=== PATIENT | male | born 1985 | race Caucasian/White ===

== ENCOUNTER 2020-05-03 18:23 | Emergency (ER) | payer OTHER ==
[~2020-05-03] VITALS: Ht 172.7 cm; Wt 94.8 kg
[~2020-05-03 18:23] MED LIST: AMOXICILLIN875 MG PO; NORCO 5-325 TA1 EAC1 PO; PENICILLIN VK500 MG PO; PREDNISONE50 MG PO; PROAIR HFA8.5 GM INH
[2020-05-03 18:29] VITALS: BP 129/92
== END 2020-05-03 19:22 | disposition home or self-care (01) ==
LOC: M.ERS 18:23
DX: S51.012A Laceration without foreign body of left elbow, initial encounter (principal); Z88.0 Allergy status to penicillin; W26.8XXA Contact with other sharp object(s), not elsewhere classified, initial encounter; Y93.89 Activity, other specified; Y92.89 Other specified places as the place of occurrence of the external cause; Y99.8 Other external cause status

== ENCOUNTER 2020-05-05 18:25 | Inpatient (IN) | payer OTHER ==
[~2020-05-05] VITALS: Ht 172.7 cm; Wt 95.3 kg
[2020-05-05 18:53] VITALS: BP 146/89
[2020-05-05 19:32] LABS: HEMATOCRIT 47.8 % (42.0-52.0); HEMOGLOBIN 16.3 gm/dL (14.0-18.0); MCH 29.9 pg (26.0-34.0); MCHC 34.2 g/dL (28.0-37.0); MCV 87.5 fL (80.0-100.0); MPV 7.8 fl. (7.2-11.1); NUCLEATED RBCS 0 /100WBC; PLATELET COUNT* 263 thou/uL (150-400); RBC 5.47 mil/uL (4.50-6.00); RDW-CV 12.9 % (10.5-14.5)
[2020-05-05 19:39] LABS: CALCIUM 8.5 mg/dL (8.5-10.1); POTASSIUM 3.7 mmol/L (3.5-5.1)
[2020-05-05 19:44] LABS: ALBUMIN 3.9 g/dL (3.4-5.0); TOTAL BILIRUBIN 0.7 mg/dL (<0.1-1.0); TOTAL PROTEIN 7.7 g/dL (6.4-8.2)
[2020-05-05 20:15] LABS: ABSOLUTE MONOCYTES 1.3 thou/uL (0.0-1.2); ABSOLUTE NEUTROPHILS 16.7 thou/uL (1.6-8.1); PLATELET ESTIMATE ADEQUATE
[2020-05-05 21:38] VITALS: BP 135/75
[2020-05-05 22:10] VITALS: BP 123/75
[2020-05-06 04:17] LABS: HEMATOCRIT 39.1 % (42.0-52.0); MCH 30.4 pg (26.0-34.0); MCHC 34.9 g/dL (28.0-37.0); MCV 87.2 fL (80.0-100.0); MPV 8.5 fl. (7.2-11.1); RBC 4.49 mil/uL (4.50-6.00); RDW-CV 13.2 % (10.5-14.5); WBC 16.6 thou/uL (4.0-11.0)
[2020-05-06 04:26] LABS: CALCIUM 7.8 mg/dL (8.5-10.1); CREATININE 1.1 mg/dL (0.6-1.3); POTASSIUM 3.8 mmol/L (3.5-5.1)
[2020-05-06 04:34] LABS: HEMOGLOBIN 13.6 gm/dL (14.0-18.0)
[2020-05-06 08:00] VITALS: BP 139/87
--- NOTE | 2020-05-06 10:30 | NUR ---
DISCUSSED WITH . SHE FEELS PT.WILL BE HERE THROUGH THE WEEKEND. HAS INFECTED LACERATION L ARM. HE IS INDEPENDENT. WORKS OUTSIDE THE HOME. NO USE OF DME OR HH. LIVES WITH AND CHILDREN. NO DISCHARGE NEEDS IDENTIFIED.
--- NOTE | 2020-05-06 13:14 | CON ---
[address] [address] CONSULTATION Name: CECY GOMEZ Room: [address] IN M.R.#: [id number] Admission: 05/05/20 Attend Phys: Ramakrishna Douglas Discharge: Date of : 87 Report #: [id number] THIS REPORT FOR: //name// cc: CHIQUITA Emery family physician/PCP CHIQUITA Emery family physician/PCP ~ THIS REPORT FOR: //name// CC: CHIQUITA physician/PCP Ramakrishna Clayton DATE OF SERVICE: 05/06/2020 INFECTIOUS DISEASE CONSULTATION ATTENDING PHYSICIAN: Ramakrishna Clayton MD REASON FOR EVALUATION: Left elbow laceration complicated by skin and soft tissue infection, apparently did involve deep structures. HISTORY OF PRESENT ILLNESS: Chart reviewed, patient examined. This is a 34-year-old without significant medical history who sustained an injury while at work, actually developed a laceration from a piece of sheet metal slashed through his site of the olecranon. It is not clear that it involved the bursa, was evaluated and had 5 interrupted sutures placed, returned noting increasing cardinal signs of inflammation, specifically redness, heat pain and swelling and made it difficult to decrease range of motion about the elbow, did have some low-grade temperature elevation as well, had experienced some anorexia and poor p.o. intake. Some of the sutures were removed. He had a mild amount of discharge, started initially on therapy with clindamycin and vancomycin. It is notable he had apparent anaphylaxis reaction to penicillin type antibiotics. He is generally lucid. Denies any pulmonary or gastrointestinal related complaints. ALLERGIES: PENICILLINS DESCRIBED ABOVE. MEDICATIONS: Currently include enoxaparin, vancomycin, famotidine, p.r.n. analgesics and antiemetics. PAST MEDICAL HISTORY: Anxiety. SOCIAL HISTORY: Nonsmoker. No ethanol, no illicit drug use. FAMILY HISTORY: Noncontributory. REVIEW OF SYSTEMS: Otherwise, unremarkable 10-point review [place] [address] CONSULTATION Name: CECY GOMEZ Room: [address]#: [id number] Admission: 05/05/20 Attend Phys: Ramakrishna Douglas Discharge: Date of : 87 Report #: [id number] PHYSICAL EXAMINATION: GENERAL: He is pleasant, alert and cooperative. He is in [id number]-fuptoehr distress, reasonably well nourished. VITAL SIGNS: Temperature max 99.5, more recently 98.2, pulse 100, respirations 18, blood pressure 139/87. SKIN: Warm, dry. No rashes. HEENT: Normocephalic. Extraocular muscles intact. NECK: Supple. He has got poor dentition certainly given his age. LUNGS: Generally clear to auscultation. HEART: Regular. Borderline tachycardic. I do not appreciate a murmur. ABDOMEN: Soft, nontender, nondistended. EXTREMITIES: Left elbow has a compression dressing on it. Apparently it was just changed for surgery. I discussed with Dr. Flood who describes it is much improved with the course since his initial arrival with decreased redness, almost full range of motion at this point. RECTAL: Deferred. LABORATORY DATA: Blood cultures sterile thus far. Electrolytes: Sodium 142, potassium 3, chloride 108, bicarbonate 25, anion gap of 9, BUN and creatinine 9 and 1.1, glucose of 107. CBC: White count 16.6, H and H 13.6 and 39.1, platelets of 210. COVID testing was negative. Sed rate was 3. CRP was elevated at 163.3. Lactic acid was 0.8. Liver functions on admission were otherwise unremarkable. Albumin of 3.9, total protein 7.7. Estimated GFR of 86. ASSESSMENT: Laceration involving the olecranon site on the left elbow. We will continue vancomycin. There are no cultures done thus far other than the blood cultures. We will see if those prove helpful, although I think the yield is probably fairly low. Clinically, he has improved on antimicrobials and accessing more of the laceration with removing the sutures. Continue to elevate and compress. <ELECTRONICALLY SIGNED> By: Gareth Monae MD 05/06/20 1314 [id number] Monae MD /nt
--- NOTE | 2020-05-06 17:58 | NUR ---
ASSUMED CARE OF PATIENT AT APPROX 1245. ALERT AND ORIENTED X4. NO COMPLAINTS OF PAIN. PATIENT DID HAVE A TEMP OF 100.0, TYLENOL GIVEN AND TEMP REASSESS AT 99.0. FLUIDS AND ANTIBIOTICS INFUSED ORDERED. PATIENT ALSO HAS SOME VOMITING AND GIVEN ZOFRAN. NOOTHER COMPLAINTS THIS SHIFT. PATIENT UP AD ROBERTA IN THE ROOM TO THE BATHROOM. CALL LIGHT PLACED IN REACH. WILL CONTINUE WITH PLAN OF CARE.
[2020-05-06 20:13] VITALS: BP 129/75
[2020-05-07 04:12] LABS: HEMATOCRIT 39.3 % (42.0-52.0); HEMOGLOBIN 13.5 gm/dL (14.0-18.0); MCH 29.9 pg (26.0-34.0); MCHC 34.3 g/dL (28.0-37.0); MCV 87.1 fL (80.0-100.0); RBC 4.51 mil/uL (4.50-6.00); RDW-CV 13.1 % (10.5-14.5); WBC 15.3 thou/uL (4.0-11.0)
[2020-05-07 04:20] LABS: CALCIUM 7.9 mg/dL (8.5-10.1); CREATININE 0.9 mg/dL (0.6-1.3); POTASSIUM 3.9 mmol/L (3.5-5.1)
--- NOTE | 2020-05-07 05:18 | NUR ---
PATIENT ALERT AND ORIENTED. HE DID NOT REPORT ANY WORSENING PAIN OR REQUEST ANY PAIN MEDICATION. HE IS UP AD ROBERTA. SLEPT ALL SHIFT. RECEIVED ALL MEDS AND ABX SCHEDULED. WILL CONTINUE TO MONITOR.
[2020-05-07 15:35] VITALS: BP 124/78
--- NOTE | 2020-05-07 17:54 | NUR ---
PATIENT ALERT AND ORIENTED X 4. VITAL SIGNS STABLE ON ROOM AIR. AFEBRILE. UP INDEPENDENTLY AND AMBULATING IN ROOM. IV PATENT WITH FLUIDS INFUSING. PAIN BEING MANAGED WITH PO MEDICATION. DENIES NAUSEA AT THIS TIME. DRESSING TO LEFT ELBOW CHANGED AND IS CLEAND, DRY, INTACT. HOURLY ROUNDS MAINTAINED THROUGHOUT THE SHIFT. CALL LIGHT WITHIN REACH. NURSING WILL CONTINUE TO MONITOR.
[2020-05-07 20:30] VITALS: BP 142/91
[2020-05-08 04:09] LABS: ABSOLUTE EOSINOPHILS 0.1 thou/uL (0.0-0.7); ABSOLUTE LYMPHOCYTES 1.4 thou/uL (0.8-5.3); ABSOLUTE NEUTROPHILS 9.7 thou/uL (1.6-8.1); BASOPHILS 0.1 %; EOSINOPHILS 0.9 %; HEMATOCRIT 37.1 % (42.0-52.0); LYMPHOCYTES 11.6 %; MCH 30.4 pg (26.0-34.0); MONOCYTES 8.5 %; NUCLEATED RBCS 0 /100WBC; PLATELET COUNT* 227 thou/uL (150-400); POLYS 78.9 %; RBC 4.27 mil/uL (4.50-6.00); RDW-CV 12.9 % (10.5-14.5); WBC 12.3 thou/uL (4.0-11.0)
[2020-05-08 04:24] LABS: ALBUMIN 2.4 g/dL (3.4-5.0); CALCIUM 7.9 mg/dL (8.5-10.1); POTASSIUM 3.7 mmol/L (3.5-5.1); TOTAL BILIRUBIN 0.2 mg/dL (<0.1-1.0); TOTAL PROTEIN 5.2 g/dL (6.4-8.2)
--- NOTE | 2020-05-08 04:56 | NUR ---
PATIENT HAS REMAINED ALERT AND ORIENTED X 4 THROUGHOUT THE SHIFT AND RESTING QUIETLY ON HOURLY ROUNDS. UP INDEPENDENTLY IN THE ROOM. DRESSING TO LEFT ELBOW CLEAN AND DRY. VITAL SIGNS WITH TEMP 99.3. MEDS/IVF'S/ANTIBIOTICS PER ORDER. DENIES PAIN. HOPES TO GO HOME TODAY. CONTINUE TO MONITOR.
[2020-05-08] MEDS ORDERED: TRAMADOL 50 MG50 MG PO (07:39)
[2020-05-08] MEDS ORDERED: DOXYCYCLINE 10100 M2 PO (07:40)
[2020-05-08 08:40] VITALS: BP 140/96
[2020-05-08 11:09] VITALS: BP 140/96
--- NOTE | 2020-05-08 13:16 | NUR ---
PATIENT DISCHARGED FROM UNIT AT 1215. ALERT AND ORIENTED X 4. VITAL SIGNS STABLE ON ROOM AIR. AFEBRILE. IV DISCONTINUED. DENIES PAIN AND NAUSEA AT THIS TIME. MEDICATION INFORMATION, SCRIPTS, AND DISCHARGE INSTRUCTIONS GIVEN TO PATIENT. LEFT WITH ALL BELONGINGS. PATIENT LEFT WITH VIA CAR.
[2020-05-08 13:53] VITALS: BP 140/96
== END 2020-05-08 12:15 | disposition home or self-care (01) | DRG 872 ==
LOC: M.ERS 18:25 → M.TBA-ER 20:17 → M.ORTHSURG 20:17
PROVIDERS: Internal Medicine; Nurse Practitioner Family; Surgery; ADMIT Family Medicine; ATTEND Family Medicine
PROC: 8E0XXY8 Suture Removal from Upper Extremity (ICD-10-PCS; principal; 2020-05-06)
DX: A41.9 Sepsis, unspecified organism (principal); L03.114 Cellulitis of left upper limb; F41.9 Anxiety disorder, unspecified; Z20.828 Contact with and (suspected) exposure to other viral communicable diseases; S51.012A Laceration without foreign body of left elbow, initial encounter; W45.8XXA Other foreign body or object entering through skin, initial encounter; F12.90 Cannabis use, unspecified, uncomplicated; Z79.899 Other long term (current) drug therapy; Z88.0 Allergy status to penicillin; Y93.89 Activity, other specified; Y92.89 Other specified places as the place of occurrence of the external cause; Y99.8 Other external cause status

== ENCOUNTER 2020-12-31 03:09 | Emergency (ER) | payer OTHER ==
[~2020-12-31] VITALS: Ht 172.7 cm; Wt 95.3 kg
[~2020-12-31 03:09] MED LIST changes: +DOXYCYCLINE 10100 M2 PO; +TRAMADOL 50 MG50 MG PO
[2020-12-31] MEDS ORDERED: NORCO5 PO (04:12)
[2020-12-31] MEDS ORDERED: IBUPROFEN 600600 M1 PO (04:12)
[2020-12-31] MEDS ORDERED: CLEOCIN HCL150 M1 PO (04:12)
[2020-12-31 06:20] VITALS: BP 144/79
== END 2020-12-31 06:20 | disposition home or self-care (01) ==
LOC: M.ERS 03:09
DX: A69.1 Other Vincent's infections (principal); L03.211 Cellulitis of face; R59.1 Generalized enlarged lymph nodes; Z88.0 Allergy status to penicillin

== ENCOUNTER 2021-06-19 11:27 | Emergency (ER) | payer OTHER ==
[~2021-06-19] VITALS: Ht 172.7 cm; Wt 97.5 kg
[~2021-06-19 11:27] MED LIST changes: +CLEOCIN HCL150 M1 PO; +IBUPROFEN 600600 M1 PO; +NORCO5 PO
[2021-06-19] MEDS ORDERED: CENTANY30 GM TOP (13:37)
[2021-06-19] MEDS ORDERED: IBUPROFEN 800800 M1 PO (13:37)
[2021-06-19] MEDS ORDERED: FLEXERIL PO (13:37)
[2021-06-19 13:57] VITALS: BP 134/62
== END 2021-06-19 13:59 | disposition home or self-care (01) ==
LOC: M.ERS 11:27
DX: S90.32XA Contusion of left foot, initial encounter (principal); S50.01XA Contusion of right elbow, initial encounter; S80.811A Abrasion, right lower leg, initial encounter; M25.561 Pain in right knee; F41.9 Anxiety disorder, unspecified; Z88.0 Allergy status to penicillin; Y02.0XXA Assault by pushing or placing victim in front of motor vehicle, initial encounter; Y93.89 Activity, other specified; Y92.89 Other specified places as the place of occurrence of the external cause; Y99.8 Other external cause status